=== PATIENT | male | born 1975 | race Caucasian/White ===

== ENCOUNTER 2017-04-12 19:14 | Emergency (ER) | payer BC ==
[~2017-04-12 19:14] MED LIST: CLARITIN 1010 MG/TAB PO; LAMISIL250 MG; NORFLEX 10100 MG/TAB PO; PERCOCET 325 MG1 TA2 PO
[2017-04-12 19:17] VITALS: BP 116/67; TEMP 97.3
[2017-04-12] MEDS ORDERED: ALLEGRA 180MG180 MG PO (20:30)
[2017-04-12] MEDS ORDERED: PERCOCET 325 MG1 TA2 PO (21:30)
[2017-04-12] MEDS ORDERED: VALIUM 5MG T5 MG/TAB PO (21:30)
[2017-04-12 21:35] VITALS: PULSE 59
== END 2017-04-12 21:35 | disposition home or self-care (01) ==
LOC: COL.ER 19:14
DX: M54.16 Radiculopathy, lumbar region (principal); Z87.81 Personal history of (healed) traumatic fracture; X50.0XXA Overexertion from strenuous movement or load, initial encounter
CPT/HCPCS: J1170; J2060

== ENCOUNTER 2017-05-09 07:10 | Outpatient (CLI) | payer BC ==
[~2017-05-09] VITALS: Ht 175.3 cm; Wt 68.6 kg
[~2017-05-09 07:10] MED LIST changes: +ALLEGRA 180MG180 MG PO; +VALIUM 5MG T5 MG/TAB PO
[2017-05-09 07:33] VITALS: BP 113/72; PULSE 75
[2017-05-09 08:26] VITALS: BP 110/64; PULSE 50
[2017-05-09 08:40] VITALS: BP 110/64; PULSE 59
[2017-05-09 08:41] VITALS: BP 100/66; PULSE 56
[2017-05-09 08:56] VITALS: BP 98/65; PULSE 48
[2017-05-09 09:11] VITALS: BP 96/67; PULSE 49
== END 2017-05-09 10:00 | disposition home or self-care (01) ==
LOC: COL.RAD 07:10
DX: M51.16 Intervertebral disc disorders with radiculopathy, lumbar region (principal); M43.8X6 Other specified deforming dorsopathies, lumbar region
CPT/HCPCS: Q9965

== ENCOUNTER → 2022-11-08 | Outpatient (CLI) | payer BC | LOC: COL.RAD 11-02 11:30 | DX: M25.511 Pain in right shoulder (principal) | CPT/HCPCS: Q9967 ==